=== PATIENT | male | born 1935 | race Caucasian/White ===

== ENCOUNTER 2021-06-16 07:43 | Emergency (ER) | payer MEDICARE, OTHER ==
[2021-06-16] MEDS ORDERED: Sodium Chloride 0.9% 10 ML Syringe FLUSH PRN (07:59)
--- NOTE | 2021-06-16 08:01 | EDM.PDOC ---
ED HPI GENERAL MEDICAL PROBLEM - General Chief Complaint: General Stated Complaint: collapsed Time Seen by Provider: 06/16/21 07:43 Source of Information: Reports: Patient, EMS, EMS Notes Reviewed History Limitations: Reports: No Limitations - History of Present Illness INITIAL COMMENTS - FREE TEXT/NARRATIVE: Tomasz, 86-year-old male, presents to the emergency department today by [facility] as he had a collapse to the floor with mild tremors. He denies any injury and shows no injury with EMS being told by his that he struck his head. There is no evidence of that. He denies any pain. Denies any deficits. Tomasz states that the first event was last Tuesday had again Tuesday and Tuesday. He presented to the clinic yesterday the 15 June 2021 for evaluation. No significant findings and he returned home. No events until this morning. Immunized versus COVID-19 x 3. Is alert appropriate denying fever chills or other factors. Onset: Unknown/Unsure Onset Date: 06/12/21 Duration: Day(s):, Intermittent Location: Reports: Generalized - Related Data Allergies Allergy/AdvReac Type Severity Reaction Status Date / Time No Known Drug Allergies Allergy Cannot Verified 06/16/21 08:12 Remember Home Meds: Home Meds Aspirin 81 mg PO BID 06/04/15 [History] Latanoprost 1 drop EYEBOTH BEDTIME 06/04/15 [History] Metoprolol Tartrate [Lopressor] 50 mg PO BID 06/04/15 [History] Omeprazole 20 mg PO DAILY 06/04/15 [History] amLODIPine Besylate [Amlodipine Besylate] 10 mg PO DAILY 06/04/15 [History] Cholecalciferol (Vitamin D3) [Vitamin D] 5,000 unit PO DAILY 06/16/21 [History] Fluticasone Propionate [Flonase] 1 spray NASBOTH BID PRN 06/16/21 [History] Insulin Degludec [Tresiba] 24 unit SQ QAM 06/16/21 [History] Losartan Potassium 100 mg PO DAILY 06/16/21 [History] Multivitamin [One-Daily Multi-Vitamin] 1 tab PO DAILY 06/16/21 [History] Mupirocin Oint [Bactroban Oint] 1 applic TOP TID PRN 06/16/21 [History] Nitroglycerin [Nitrostat] 0.4 mg SL ASDIRECTED 06/16/21 [History] Psyllium Husk/Aspartame [Metamucil Sugar Free] 1 pkt PO DAILY PRN 06/16/21 [History] Semaglutide [Wegovy] 0.25 mg SQ ASDIRECTED 06/16/21 [History] Simvastatin [Zocor] 20 mg PO DAILY 06/16/21 [History] Sulfamethoxazole/Trimethoprim [Bactrim 400-80 MG] 1 each PO BID 7 Days #14 tablet 06/16/21 [Rx] Triamcinolone Acetonide [Triamcinolone Acetonide 0.1% Crm] 1 applic TOP BID PRN 06/16/21 [History] Ubidecarenone [Co Q-10] 200 mg PO ASDIRECTED 06/16/21 [History] polyethylene glycoL 3350 [MiraLAX] 17 gm PO DAILY PRN 06/16/21 [History] Past Medical History HEENT History: Reports: Glaucoma, Hard of Hearing, Impaired Vision, Sinusitis, Other (See Below) (post nasal drip) Cardiovascular History: Reports: CAD, High Cholesterol, Hypertension, Stents Respiratory History: Reports: None Gastrointestinal History: Reports: Chronic Constipation, Diverticulosis, Hemorrhoids, Pancreatitis Other Gastrointestinal History: pancreatic cancer involving spleen 2004 Genitourinary History: Reports: Prostate Disorder (cancer), Renal Disease, Urinary Incontinence, 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, RT) Musculoskeletal History: Reports: Osteoarthritis Neurological History: Reports: TIA Endocrine/Metabolic History: Reports: Diabetes, Type II Oncologic (Cancer) History: Reports: Prostate, Other (See Below) (spleen) Dermatologic History: Reports: Other (See Below) (dermatitis) - Past Surgical History HEENT Surgical History: Reports: Cataract Surgery Cardiovascular Surgical History: Reports: Coronary Artery Stent, Percutaneous Transluminal Angioplasty Respiratory Surgical History: Reports: None GI Surgical History: Reports: Colonoscopy Male Surgical History: Reports: Prostate Biopsy, Prostatectomy Other Male Surgeries/Procedures: prostate surgery and removal due to cancer 2001 Other Oncologic Surgeries/Procedures: pancreas 1/2 removal, spleen removal, prostate removal Social & Family History - Tobacco Use Tobacco Use Status *Q: Never Tobacco User ED ROS GENERAL - Review of Systems Review Of Systems: Comprehensive ROS is negative, except as noted in HPI. ED EXAM, GENERAL - Physical Exam Exam: See Below Free Text/Narrative:: Alert, oriented, in no distress. He denies any pain or dysfunction. HEENT shows bilateral hearing aids in place. PERRLA no icterus no injection EOM intact. [place] moist mucous membranes Neck soft supple no lymphadenopathy no rigidity noted. I do not appreciate any carotid bruit. Thorax is clear slightly diminished bases likely due to inspiratory effort. Cardiac is regular I do not appreciate murmur. No flank pain no abdominal pain. Bowel sounds are present with no tenderness. Moves extremities about with no difficulty and was able to reposition himself after moving from ambulance cart onto the cot. No edema to the extremities. States he is feeling quite well at this time and states he remembers everything during the spells with generalized tonic-clonic activity with denial of any loss of consciousness and overall remembers everything occurring. Blood sugars were never low at the time when checked. #1 Interpretation EKG Date: 06/16/21 Time: 07:57 Rhythm: NSR Rate (Beats/Min): 90 [place]: Normal P-Wave: Present QRS: Normal ST-T: Normal QT: Normal Comparison: No Change ([facility] 01 Aug 2019) Course - Vital Signs Last Recorded V/S: Last Vital Signs Temp 97.9 F 06/16/21 08:13 Pulse 92 06/16/21 08:13 Resp 16 06/16/21 08:13 BP 128/67 06/16/21 08:13 Pulse Ox 91 L 06/16/21 08:13 - Orders/Labs/Meds Orders: Active Orders 24 hr Category Date Time Status Peripheral IV Care [RC] . DIRECTED Care 06/16/21 08:00 Active CULTURE BLOOD [BC] Stat Lab 06/16/21 08:00 Ordered CULTURE BLOOD [BC] Stat Lab 06/16/21 08:00 Ordered CULTURE URINE [RM] Stat Lab 06/16/21 09:25 Received Sodium Chloride 0.9% [Normal Saline] 1,000 ml Med 06/16/21 08:15 Active IV ASDIRECTED Sodium Chloride 0.9% [Saline Flush] Med 06/16/21 07:59 Active 10 ml FLUSH Q8HR PRN Blood Culture x2 Reflex Set [OM.PC] Stat Oth 06/16/21 07:59 Ordered Peripheral IV Insertion Adult [OM.PC] Stat Oth 06/16/21 07:59 Ordered EKG 12 Lead [EK] Stat Ther 06/16/21 07:59 Ordered Medication Orders Sodium Chloride (Normal Saline) 1,000 mls @ 500 mls/hr IV ASDIRECTED SULEMAN Last Admin: 06/16/21 08:23 Dose: 500 mls/hr Documented by: ANA M Sodium Chloride (Sodium Chloride 0.9% 10 Ml Syringe) 10 ml FLUSH Q8HR PRN PRN Reason: keep vein open Labs: Laboratory Tests 06/16/21 06/16/21 06/16/21 Range/Units 07:59 07:59 08:00 WBC 14.57 H (5.00-10.00) 10^3/uL RBC 4.02 L (4.50-6.00) 10^6/uL Hgb 12.5 L (13.0-17.0) g/dL Hct 37.9 L (40.0-52.0) % MCV 94.3 H (82.0-92.0) fL MCH 31.1 H (27.0-31.0) pg MCHC 33.0 (32.0-36.0) g/dL RDW 13.1 (11.5-14.5) % Plt Count 206 (150-400) 10^3/uL MPV 10.2 (7.4-10.4) fL Immature Gran % (Auto) 0.3 (0.0-5.0) % Neut % (Auto) 82.6 H (50.0-70.0) % Lymph % (Auto) 3.9 L (20.0-40.0) % [place] % (Auto) 12.8 H (2.0-8.0) % Eos % (Auto) 0.1 L (1.0-3.0) % Baso % (Auto) 0.3 (0.0-1.0) % Neut # (Auto) 12.03 H (2.50-7.00) 10^3/uL Lymph # (Auto) 0.57 L (1.00-4.00) 10^3/uL Spink # (Auto) 1.87 H (0.10-0.80) 10^3/uL Eos # (Auto) 0.01 L (0.10-0.30) 10^3/uL Baso # (Auto) 0.04 (0.00-0.10) 10^3/uL Immature Gran # (Auto) 0.05 (0.00-0.50) 10^3/uL D-Dimer, Quantitative 3690 H (<400) ng/mL Sodium 141 (136-145) mmol/L Potassium 4.1 (3.5-5.1) mmol/L Chloride 106 (98-107) mmol/L Carbon Dioxide 22.1 (21.0-32.0) mmol/L Anion Gap 17.0 H (5-15) mmol/L BUN 34 H (7-18) mg/dL Creatinine 1.71 H (0.51-1.17) mg/dL Est Cr Clr Drug Dosing 31.63 mL/min Estimated GFR (MDRD) 38 mL/min Glucose 111 (70-140) mg/dL Lactic Acid (0.4-2.0) mmol/L Calcium 8.3 L (8.7-10.3) mg/dL Total Bilirubin 1.1 H (0.2-1.0) mg/dL AST 49 H (15-37) U/L ALT 55 (14-63) U/L Alkaline Phosphatase 87 (46-116) U/L Troponin I High Sens 13.500 (0-76.000) pg/mL C-Reactive Protein > 11.0 H (0.0-0.9) mg/dL Total Protein 7.0 (6.4-8.2) g/dL Albumin 2.99 L (3.40-5.00) g/dL Specimen Type Urine Color (YELLOW) Urine Appearance (CLEAR) Urine pH (5.0-9.0) Ur Specific [place] (1.005-1.030) Urine Protein (NEGATIVE) mg/dL Urine Glucose (UA) (NEGATIVE) mg/dL Urine Ketones (NEGATIVE) mg/dL Urine Occult Blood (NEGATIVE) Urine Nitrite (NEGATIVE) Urine Bilirubin (NEGATIVE) Urine Urobilinogen (0.2-1.0) E.U./dL Ur Leukocyte Esterase (NEGATIVE) Urine RBC (0-5) /HPF Urine WBC (0-5) /HPF Ur Epithelial Cells /LPF Other Crystals /HPF Amorphous Sediment (0/HPF) /HPF Urine Bacteria (NONE TO FEW) /HPF Influenza Type A RNA (NEGATIVE) Influenza Type B RNA (NEGATIVE) SARS-CoV-2 RNA (JUNE) (NEGATIVE) 06/16/21 06/16/21 06/16/21 Range/Units 08:00 08:03 09:25 WBC (5.00-10.00) 10^3/uL RBC (4.50-6.00) 10^6/uL Hgb (13.0-17.0) g/dL Hct (40.0-52.0) % MCV (82.0-92.0) fL MCH (27.0-31.0) pg MCHC (32.0-36.0) g/dL RDW (11.5-14.5) % Plt Count (150-400) 10^3/uL MPV (7.4-10.4) fL Immature Gran % (Auto) (0.0-5.0) % Neut % (Auto) (50.0-70.0) % Lymph % (Auto) (20.0-40.0) % [place] % (Auto) (2.0-8.0) % Eos % (Auto) (1.0-3.0) % Baso % (Auto) (0.0-1.0) % Neut # (Auto) (2.50-7.00) 10^3/uL Lymph # (Auto) (1.00-4.00) 10^3/uL [place] # (Auto) (0.10-0.80) 10^3/uL Eos # (Auto) (0.10-0.30) 10^3/uL Baso # (Auto) (0.00-0.10) 10^3/uL Immature Gran # (Auto) (0.00-0.50) 10^3/uL D-Dimer, Quantitative (<400) ng/mL Sodium (136-145) mmol/L Potassium (3.5-5.1) mmol/L Chloride (98-107) mmol/L Carbon Dioxide (21.0-32.0) mmol/L Anion Gap (5-15) mmol/L BUN (7-18) mg/dL Creatinine (0.51-1.17) mg/dL Est Cr Clr Drug Dosing mL/min Estimated GFR (MDRD) mL/min Glucose (70-140) mg/dL Lactic Acid 0.9 (0.4-2.0) mmol/L Calcium (8.7-10.3) mg/dL Total Bilirubin (0.2-1.0) mg/dL AST (15-37) U/L ALT (14-63) U/L Alkaline Phosphatase (46-116) U/L Troponin I High Sens (0-76.000) pg/mL C-Reactive Protein (0.0-0.9) mg/dL Total Protein (6.4-8.2) g/dL Albumin (3.40-5.00) g/dL Specimen Type Urincc Urine Color Yellow (YELLOW) Urine Appearance Clear (CLEAR) Urine pH 7.0 (5.0-9.0) Ur Specific [place] 1.015 (1.005-1.030) Urine Protein 30 H (NEGATIVE) mg/dL Urine Glucose (UA) Negative (NEGATIVE) mg/dL Urine Ketones Negative (NEGATIVE) mg/dL Urine Occult Blood Negative (NEGATIVE) Urine Nitrite Positive H (NEGATIVE) Urine Bilirubin Negative (NEGATIVE) Urine Urobilinogen 0.2 (0.2-1.0) E.U./dL Ur Leukocyte Esterase Trace H (NEGATIVE) Urine RBC Not seen (0-5) /HPF Urine WBC 5-10 H (0-5) /HPF Ur Epithelial Cells Rare /LPF Other Crystals Rare /HPF Amorphous Sediment Few (0/HPF) /HPF Urine Bacteria Moderate H (NONE TO FEW) /HPF Influenza Type A RNA Negative (NEGATIVE) Influenza Type B RNA Negative (NEGATIVE) SARS-CoV-2 RNA (JUNE) Negative (NEGATIVE) Meds: Medications Generic Name Dose Route Start Last Admin Trade Name Frelashawn PRN Reason Stop Dose Admin Sodium Chloride 1,000 mls @ 500 mls/hr 06/16/21 08:15 06/16/21 08:23 Normal Saline IV 500 mls/hr ASDIRECTED SULEMAN Administration Sodium Chloride 10 ml 06/16/21 07:59 Sodium Chloride 0.9% 10 Ml Syringe FLUSH Q8HR PRN keep vein open Discontinued Medications Generic Name Dose Route Start Last Admin Trade Name Freq PRN Reason Stop Dose Admin Ceftriaxone Sodium 1 gm 06/16/21 10:09 06/16/21 10:18 Ceftriaxone 1 Gm Vial IVPUSH 06/16/21 10:10 1 gm ONETIME ONE Administration - Re-Assessments/Exams Free Text/Narrative Re-Assessment/Exam: 06/16/21 09:27 No previous D-dimer comparison available in the [facility] record. No complaint according to or himself for any clotting issue other than his cancer history. Well score of 0 for PE risk Free Text/Narrative Re-Assessment/Exam: 06/16/21 10:26 Repetitive discussions with both Tomasz and his is Tomasz feels he is good enough to go home and his comments that the tremors are likely a symptom of the underlying urine infection. We again discussed the elevated D-dimer with his medical history and negative findings for any form of clot, DVT, nor shortness of breath, nor chest pain. The risk of a contrast study with his chronic renal issues and a GFR of 38 in conjunction with documentation of urinary tract infection which will also be adding to renal clearing, that the risk outweighs the benefit. Tomasz would prefer to go home as he states "it is no use for me to take a hospital bed when I am not sick". His seems hesitant and I continue to off er consult with [facility] provider diamond die polisher to see if they would consider an admission. As they have home oxygen monitoring and it is noted here that with no supplemental oxygen he can range from 90 to 95% and only seems to drop below 90- 80 8-89 if he is relaxing and/or not attentive to his breathing. 06/16/21 10:38 Incentive spirometry device brought to bedside at which time his saturations increased to 97% denying any discomfort or dysfunction and deep breathing. Departure - Departure Time of Disposition: 11:03 Disposition: Home, Self-Care 01 Condition: Fair Clinical Impression: Chronic renal failure, stage 3b, UTI (urinary tract infection), History of cancer, Elevated d-dimer - Discharge Information *PRESCRIPTION DRUG MONITORING PROGRAM REVIEWED*: Not Applicable *COPY OF PRESCRIPTION DRUG MONITORING REPORT IN PATIENT CARLOS: Not Applicable Prescriptions: Sulfamethoxazole/Trimethoprim [Bactrim 400-80 MG] 1 each PO BID 7 Days #14 tablet Instructions: Urinary Tract Infection, Adult, [id number], Chronic Kidney Disease, Adult Referrals: PCP,Unknown [Primary Care Provider] - Snehal Landis, PROPERTY SITE MANAGER [Nurse Practitioner] - Forms: ED Department Discharge Additional Instructions: You have a urinary tract infection which was treated with an IV medication Rocephin here in the emergency department. There is a prescription at [facility] for you for Bactrim that you will take 1 tablet twice daily for 7 days. You need to increase your fluids as you need to flush the infection as well as all medications from your system. There is a culture pending on the urine here today and you will be contacted if there is a discrepancy or variation for resistance that would require a change in the medication. Continue all your medications as directed. Use your incentive spirometry every hour while awake to increase your lung volume. The scarring on your lungs it is noted on x-ray to which she replied your farmers along exposures places you at higher risk for desaturation when not taking full breaths. Contact your clinic for recheck in 7 to 10 days. Recheck sooner if not improving or worsening. Consider emergency department outside of clinic hours. Sepsis Event Note (ED) - Focused Exam Vital Signs: Vital Signs Temp Pulse Resp BP Pulse Ox 06/16/21 08:13 97.9 F 92 16 128/67 91 L - Problem List & Annotations (1) UTI (urinary tract infection) SNOMED Code(s): 78227832 Code(s): N39.0 - URINARY TRACT INFECTION, SITE NOT SPECIFIED Status: Acute Priority: High Current Visit: Yes Qualifiers: Urinary tract infection type: acute cystitis Hematuria presence: with hematuria Qualified Code(s): N30.01 - Acute cystitis with hematuria (2) Chronic renal failure, stage 3b SNOMED Code(s): 357209262, 911374483 Code(s): N18.32 - CHRONIC KIDNEY DISEASE, STAGE 3B Status: Acute Priority: High Current Visit: Yes (3) History of cancer SNOMED Code(s): 878143292 Code(s): Z85.9 - PERSONAL HISTORY OF MALIGNANT NEOPLASM, UNSPECIFIED Status: Chronic Priority: High Current Visit: Yes (4) Elevated d-dimer SNOMED Code(s): 029352850 Code(s): R79.89 - OTHER SPECIFIED ABNORMAL FINDINGS OF BLOOD CHEMISTRY Status: Acute Priority: Medium Current Visit: Yes Annotation/Comment:: Lengthy discussion on risk factors with a 0 Wells score and no evidence of any DVT no other criteria. History cancer may produce an elevated marker. Saturations have remained good, no chest pain, no evidence of high criteria for contrast study as he has stage IIIb renal disease limits implementation of worsening contrast studies. - Problem List Review Problem List Initiated/Reviewed/Updated: Yes - My Orders Last 24 Hours: My Active Orders 06/16/21 07:59 Sodium Chloride 0.9% [Saline Flush] 10 ml FLUSH Q8HR PRN Blood Culture x2 Reflex Set [OM.PC] Stat Peripheral IV Insertion Adult [OM.PC] Stat EKG 12 Lead [EK] Stat 06/16/21 08:00 Peripheral IV Care [RC] . DIRECTED CULTURE BLOOD [BC] Stat CULTURE BLOOD [BC] Stat 06/16/21 08:15 Sodium Chloride 0.9% [Normal Saline] 1,000 ml IV ASDIRECTED 06/16/21 09:25 CULTURE URINE [RM] Stat - Assessment/Plan Last 24 Hours: My Active Orders 06/16/21 07:59 Sodium Chloride 0.9% [Saline Flush] 10 ml FLUSH Q8HR PRN Blood Culture x2 Reflex Set [OM.PC] Stat Peripheral IV Insertion Adult [OM.PC] Stat EKG 12 Lead [EK] Stat 06/16/21 08:00 Peripheral IV Care [RC] . DIRECTED CULTURE BLOOD [BC] Stat CULTURE BLOOD [BC] Stat 06/16/21 08:15 Sodium Chloride 0.9% [Normal Saline] 1,000 ml IV ASDIRECTED 06/16/21 09:25 CULTURE URINE [RM] Stat Plan: You have a urinary tract infection which was treated with an IV medication Rocephin here in the emergency department. There is a prescription at [facility] for you for Bactrim that you will take 1 tablet twice daily for 7 days. You need to increase your fluids as you need to flush the infection as well as all medications from your system. There is a culture pending on the urine here today and you will be contacted if there is a discrepancy or variation for resistance that would require a change in the medication. Continue all your medications as directed. Use your incentive spirometry every hour while awake to increase your lung volume. The scarring on your lungs it is noted on x-ray to which she replied your farmers along exposures places you at higher risk for desaturation when not taking full breaths. Contact your clinic for recheck in 7 to 10 days. Recheck sooner if not improving or worsening. Consider emergency department outside of clinic hours.
[2021-06-16] MEDS ORDERED: Sodium Chloride 0.9% 1,000 ML IV SCH (08:15)
--- NOTE | 2021-06-16 08:26 | CR ---
[id number] RAD/RAD Chest PA or AP 1V EXAM: FRONTAL CHEST INDICATION: COLLAPSE SPELLS?, WEAKNESS WITH COLLAPSE. COMPARISON: None. DISCUSSION: Linear scarring or atelectasis in the lung bases. No acute infiltrates. Normal heart size. No effusions. IMPRESSION: 1. Bibasilar linear scarring or atelectasis. Devante Eaton MD 06/16/21 0825 Thank you for allowing us to participate in the care of your patient.
[2021-06-16 08:58] LABS: CHLORIDE,CL 106 mmol/L (98-107); SODIUM,NA 141 mmol/L (136-145)
--- NOTE | 2021-06-16 09:03 | CT ---
[id number] CT/CT Head WO IV EXAM: CT Head WO IV CLINICAL DATA: TREMORS, SEIZURE. COMPARISON STUDY: May 2015 FINDINGS: No intracranial hemorrhage, extra-axial fluid collection, mass, or acute ischemia. No hydrocephalus. Mild parenchymal atrophy throughout both cerebral hemispheres. Juxtacortical and periventricular white matter hypodensities. Combination of findings are most consistent with sequela of chronic small vessel disease. 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 Calvarium intact. Paranasal sinuses and mastoid air cells are clear. IMPRESSION: No acute intracranial findings. Antwon Nina MD 06/16/21 0902 Thank you for allowing us to participate in the care of your patient.
[2021-06-16 10:08] LABS: CORONAVIRUS COVID-19 NAA NEGATIVE (NEGATIVE)
[2021-06-16] MEDS ORDERED: cefTRIAXone 1 GM Vial IVPUSH ONE (10:09)
[2021-06-16 14:06] VITALS: BP 115/57; PULSE 77
== END 2021-06-16 11:30 | disposition home or self-care (01) ==
LOC: KA.ED 07:43
DX: N39.0 Urinary tract infection, site not specified (principal); R79.1 Abnormal coagulation profile; I12.9 Hypertensive chronic kidney disease with stage 1 through stage 4 chronic kidney disease, or unspecified chronic kidney disease; E11.22 Type 2 diabetes mellitus with diabetic chronic kidney disease; N18.32 Chronic kidney disease, stage 3b; I25.10 Atherosclerotic heart disease of native coronary artery without angina pectoris; E78.00 Pure hypercholesterolemia, unspecified; M19.90 Unspecified osteoarthritis, unspecified site; Z79.82 Long term (current) use of aspirin; Z79.4 Long term (current) use of insulin; Z79.899 Other long term (current) drug therapy; Z20.822 Contact with and (suspected) exposure to COVID-19
CPT/HCPCS: 0240U; 36415; 70450; 71045; 80053; 81001; 83605; 84484; 85025; 85379; 86140; 87040; 87086; 87088; 87186; 96374; 99285-25; J0696; J7030